=== PATIENT | male | born 1935 | race Caucasian/White ===

== ENCOUNTER 2018-03-26 10:20 | Inpatient (IN) | payer MEDICARE, SELFPAY ==
[2018-03-26 11:01] LABS: #Lymphocytes 1.1 thou/uL (1.20-3.40); #Monocytes 0.5 thou/uL (0.11-0.59); #Neutrophils 8.1 thou/uL (1.40-6.50); %Basophils 0.2 % (0.0-1.0); %Eosinophils 0.4 % (0.0-10.0); %Lymphocytes 11.5 % (21.0-51.0); %Monocytes 4.9 % (0.0-10.0); %Neutrophils 83.1 % (42.0-75.0); Hemoglobin 15.2 g/dL (14.0-18.0); Mean Corpuscular HGB CONC 33.5 g/dL (32.0-36.0); Mean Corpuscular Hemoglobin 34.6 pg (27.0-31.0); Mean Platelet Volume 8.7 fL (7.4-10.4); Platelet Count 150 thou/uL (130-400); RBC Distribution Width 11.6 % (11.5-14.5); Red Blood Cell (RBC) Count 4.39 mill/uL (4.70-6.10); White Blood Cell (WBC) Count 9.8 thou/uL (4.8-10.8)
--- NOTE | 2018-03-26 11:03 | CT ---
CT BRAIN NONCONTRAST: DATE: 03/26/2018. TIME: 10:25 a.m. HISTORY: An 82-year-old male with right facial droop and dysarthria beginning yesterday morning. Dr. Dillard discussed the findings of this level I stroke alert protocol CT with Dr. Woodward of the emergenc y department at 10:30 a.m. on 03/26/2018. COMPARISON: None available. FINDINGS: There are multifocal small, patchy moderately low-attenuation focal lesions involving the left extrem e capsule, basal ganglia, and left caudate nucleus. There is a moderate to large arachnoid cyst in the left middle cranial fossa. There is no mass effec t, midline shift, acute intraaxial or extraaxial hemorrhage, or calvarial fracture. The ventricles a re normal in size and configuration. IMPRESSION: 1. Multiple small, moderately low attenuation lesions involving the left corpus striatum, consistent with multiple small lacunar infarctions, of indeterminate age. 2. No acute intracranial hemorrhage or mass effect. 3. Arachnoid cyst in the left middle cranial fossa. 4. If there are no contraindications, MRI of the brain would be useful to distinguish acute/subacute infarctions from old ones. CODE CR JN R POS: [facility]
[2018-03-26 11:07] LABS: PTT 28.2 SEC (22.9-36.1); Prothrombin Time 12.8 SEC (12.0-14.7)
--- NOTE | 2018-03-26 11:10 | RAD ---
SINGLE VIEW OF THE CHEST: COMPARISON: None. HISTORY: Slurred speech and facial drooping. FINDINGS: A single view of the chest shows a normal-size cardiomediastinal silhouette with atherosclerotic calc ifications in the aorta. There is no evidence of consolidation, mass, or pleural effusion. IMPRESSION: No evidence of acute cardiopulmonary disease. POS: [facility]
[2018-03-26 11:25] LABS: ALT (SGPT) 16 U/L (8-55); AST (SGOT) 17 U/L (5-34); Alkaline Phosphatase 84 U/L (40-150); Anion Gap 11 mmol/L (10-20); BUN (Urea Nitrogen) 16 mg/dL (8.4-25.7); Bilirubin, Total 0.5 mg/dL (0.2-1.2); CK (CPK) 54 U/L (30-200); Calc. Creatinine Clearance 0 mL/min (70-130); Calcium 9.1 mg/dL (7.8-10.44); Carbon Dioxide 26 mmol/L (23-31); Chloride 110 mmol/L (98-107); Estimated GFR-MDRD 81; Globulin 2.6 g/dL (2.4-3.5); Glucose 111 mg/dL (83-110); Protein, Total 6.6 g/dL (5.8-8.1); Sodium 143 mmol/L (136-145)
--- NOTE | 2018-03-26 11:32 | PDOC.FPRHP ---
- History of Present Illness Chief Complaint: slurred speech History of Present Illness: Pt started noticing difficulty with speech yesterday morning. Pt reports having trouble speaking and finding words as well as some possible clumsiness with use of hands. Pt is lithuanian and has thick accent on top of his slurred speech and therefore difficult to understand. HPI and ROS are therefore limited. Pt denies any other complaints. ED Course: ASA 325 - Allergies/Adverse Reactions Allergies Allergy/AdvReac Type Severity Reaction Status Date / Time No Known Allergies Allergy Unverified 03/26/18 12:13 - History PMHx: PAD PSHx: Stents in lower abdomen vessels. FHx: Noncontributory Social: 1 ppd smoker for 50+ yrs, Drinks wine on occasion, Denies any illicit drug use Discussed code status with pt and what to do if heart stopped or needed to be intubated. Pt reports being a DNR and DNI - Review of Systems ROS unobtainable: other (due to slurred speech ROS was difficult to obtain) General: denies: fever/chills, weight/appetite/sleep changes Eyes: denies: eye pain, vision changes ENT: denies: nasal congestion, rhinorrhea Respiratory: denies: shortness of breath Cardiovascular: denies: chest pain, palpitation Gastrointestinal: denies: nausea, vomiting, diarrhea, constipation Genitourinary: denies: dysuria Skin: denies: rashes, lesions Musculoskeletal: denies: pain, tenderness, stiffness Neurological: reports: other Psychological: denies: anxiety, depression - Vital signs BP: [134/77] HR: [67] RR: [16] Tmax: [98] Pox: [99]% on [ra] Wt: [72kg] - Physical Exam Constitutional: awake, alert and oriented, well developed HEENT: normocephalic and atraumatic, PERRLA, EOMI, conjunctiva clear, grossly normal vision, grossly normal hearing, MMM Neck: supple, trachea midline Chest: no-tender to palpation Heart: RRR, normal S1/S2 Lungs: CTAB, no respiratory distress Abdomen: soft, non-tender Musculoskeletal: normal structure, normal tone Neurological: normal sensation, DTRs 2+ -Neurological: normal strength. Slurred speech per HPI. Good coordination with finger-nose test. CN2-12 intact except tongue deviation to the R. Skin: no rash/lesions, good turgor Heme/Lymphatic: no unusual bruising or bleeding, no purpura Psychiatric: normal mood and affect, good judgment and insight FMR H&P: Results - Labs Result Diagrams: 03/26/18 10:45 03/26/18 10:45 Lab results: WBC 9.8 thou/uL (4.8-10.8) 03/26/18 10:45 Hgb 15.2 g/dL (14.0-18.0) 03/26/18 10:45 Hct 45.5 % (42.0-52.0) 03/26/18 10:45 MCV 104.0 fL (78.0-98.0) H 03/26/18 10:45 Plt Count 150 thou/uL (130-400) 03/26/18 10:45 Neutrophils % 83.1 % (42.0-75.0) H 03/26/18 10:45 Sodium 143 mmol/L (136-145) 03/26/18 10:45 Potassium 4.0 mmol/L (3.5-5.1) 03/26/18 10:45 Chloride 110 mmol/L (98-107) H 03/26/18 10:45 Carbon Dioxide 26 mmol/L (23-31) 03/26/18 10:45 BUN 16 mg/dL (8.4-25.7) 03/26/18 10:45 Creatinine 0.90 mg/dL (0.7-1.3) 03/26/18 10:45 Glucose 111 mg/dL (83-110) H 03/26/18 10:45 Calcium 9.1 mg/dL (7.8-10.44) 03/26/18 10:45 Total Bilirubin 0.5 mg/dL (0.2-1.2) 03/26/18 10:45 AST 17 U/L (5-34) 03/26/18 10:45 ALT 16 U/L (8-55) 03/26/18 10:45 Alkaline Phosphatase 84 U/L (40-150) 03/26/18 10:45 Creatine Kinase 54 U/L (30-200) 03/26/18 10:45 Serum Total Protein 6.6 g/dL (5.8-8.1) 12/16/18 10:45 Albumin 4.0 g/dL (3.4-4.8) 03/26/18 10:45 FMR H&P: A/P - Problem List (1) Ischemic stroke Current Visit: Yes Status: Acute Code(s): I63.9 - CEREBRAL INFARCTION, UNSPECIFIED - Plan 82yo M presenting with 36hr hx of slurred speech New onset of acute ischemic stroke A- Pt is symptomatic for about [address] shows multiple lacunar small infarcts in L corpus striatum and an arrachnoid cyst. Pt is not candidate for tPa. P-Admit to stroke -continue ASA daily -MRI, Echo, Carotid doppler studies pending -FLP, A1C, TSH -neuro consult -PT/OT/Speech consulted- await recs -Case management consulted for possible rehab placement. Elevated BP A- Pt had SBPs ranging 130-160 in ED. No Hx of HTN. Permissive htn is allowed for approximately 12-16 more hrs P- will monitor vitals Premature Ventricular Contractions A- EKG at presentation showed NSR with PVCs. Pt is asymptomatic and trop is negative. P- will monitor rhythm as well as monitor pts symptoms IVF: LR at 100ml/hr as pt is NPO untill speech therapy eval Code: DNR/DNI Dispo: inpatient, at least 2 midnights FMR H&P: Upper Level - Pertinent history I was present in room for Dr. Coelho History intake and agree with his part above. Pertinents listed below 82 pt comes in with chief complaint of slurred speech since Tuesday. Pt hard to understand and [place] language is lithuanian. Pt having hard time with word finding and forming sentences. Pt seems to understand questions and answers yes and no. Pt reports not being to doctor for a long time. Pt denies any major medical problems. Pt denies any headache, vision changes. Denies any numbness or tingling. Denies any other focal deficits - Pertinent findings CN2-12 other than 7 grossly intact. No facial droop noted. Tongue deviated towards left when asked to stick out. No other focal neuro defecit noted - Plan Date/Time: 03/26/18 1132 I, Melecio Steve, have evaluated this patient and agree with findings/plan as outlined by digital media intern resident. Pertinent changes/additions are listed here. New onset of acute ischemic stroke A- Pt is symptomatic for about [address] shows multiple lacunar small infarcts in L corpus striatum and an arrachnoid cyst. Pt is not candidate for tPa. P-Admit to stroke -continue ASA daily -MRI, Echo, Carotid doppler studies pending -FLP, A1C, TSH -neuro consult -PT/OT/Speech consulted- await recs -Case management consulted for possible rehab placement. Elevated BP A- Pt had SBPs ranging 130-160 in ED. No Hx of HTN. Permissive htn is allowed for approximately 12-16 more hrs P- will monitor vitals -May want to start on BP medication if continues to be elevated. Premature Ventricular Contractions A- EKG at presentation showed NSR with PVCs. Pt is asymptomatic and trop is negative. P- will monitor rhythm as well as monitor pts symptoms
[2018-03-26] MEDS ORDERED: Aspirin 325 MG TAB ONE (11:48)
[2018-03-26] MEDS ORDERED: Calcium Carbonate 500 MG ChewTAB PO PRN (12:55)
[2018-03-26] MEDS ORDERED: Acetaminophen 325 MG TAB PO PRN (12:55)
[2018-03-26] MEDS ORDERED: Acetaminophen 650 MG Suppository PR PRN (12:55)
[2018-03-26] MEDS ORDERED: Ondansetron ODT 4 MG TAB PO PRN (12:55)
[2018-03-26] MEDS ORDERED: Enoxaparin Sodium 40 MG/0.4 ML SYRINGE SC SCH (12:55)
[2018-03-26] MEDS ORDERED: Ondansetron PF 4 MG/2 ML Vial IVP PRN (12:55)
[2018-03-26 13:19] LABS: Hemoglobin A1c 5.4 % (4.0-6.0)
--- NOTE | 2018-03-26 14:42 | MRI ---
MRI BRAIN NONCONTRAST: DATE: 03/26/2018. TIME: 2:08 p.m. HISTORY: An 82-year-old male with symptoms of acute stroke: right facial droop and dysarthria. Equivocal find ings on CT. COMPARISON: CT of 03/26/2018, 10:25 a.m. No prior brain MRIs. FINDINGS: The subtle, faint multiple tiny foci of moderately low attenuation involving the left basal ganglia, a small portion of the left caudate nucleus, and adjacent portion of left periventricular white matte r, is demonstrated on this MRI to be a single confluent 1.6 x 1.6 cm lesion that has restricted diffu tato indicating that it is an acute or subacute infarction. It is associated with mild T2 hyperinten sity. There are no actual lesions in the left extreme capsule. Again noted is the 3.5 x 3.5 x 3 cm arachnoid cyst in the left middle cranial fossa. Otherwise, ther e is no mass effect, midline shift, obstructive hydrocephalus, or extraaxial fluid collection. No re cent or remote intraaxial hemorrhage. There are mild chronic ischemic white matter changes in the ce ntrum semiovale and henson radiata. There is a right mastoid effusion. IMPRESSION: 1. Acute infarction of the left corpus striatum (involving lenticulostriate branch territory of the left middle cerebral artery). 2. Right mastoid effusion. 3. Arachnoid cyst in left middle cranial fossa. CARSON Britton POS: [facility]
--- NOTE | 2018-03-26 15:26 | ULT ---
ULTRASOUND DOPPLER DUPLEX CAROTID: HISTORY: An 82-year-old male with acute stroke: infarction of left corpus striatum. TECHNIQUE: Sweeney scale, color flow, and spectral analysis, of major arteries of neck. FINDINGS: Calcified atherosclerotic plaque in the bilateral proximal internal carotid arteries, including carot id bulbs. Scattered small calcified plaque at origin of right external carotid artery and at distal left common carotid artery. The highest peak systolic velocities in the internal carotid arteries are 230 cm/s on the right, and 120/s on the left. The end-diastolic velocity at the right internal carotid artery is 90 cm/s. ICA/CCA ratios are 2.2 on the right and 1.4 on the left. Vertebral artery flow is antegrade bilaterally. IMPRESSION: 1. Atherosclerosis of bilateral proximal internal carotid arteries. 2. Moderate to severe stenosis in the right internal carotid artery. POS: [facility]
[2018-03-26] MEDS ORDERED: Atorvastatin Calcium 40 MG TAB PO SCH (21:00)
[2018-03-26] MEDS: Lactated Ringer's 1,000 ML IV SCH (23:21)
[2018-03-27 00:13] VITALS: BMI 23.3
[2018-03-27] MEDS ORDERED: Enoxaparin Sodium 40 MG/0.4 ML SYRINGE SC SCH (01:30)
[2018-03-27] MEDS: Enoxaparin Sodium 40 MG/0.4 ML SYRINGE SC SCH ×2 (01:47→20:45)
--- NOTE | 2018-03-27 06:02 | PDOC.FM ---
- Subjective Subjective: Mr. Bocanegra is feeling well this AM. Reports decent rest and has no new problems or complaints at this time. He feels his symptoms are stable. No fever/chills, no cp no sob - Objective MAR Reviewed: Yes Vital Signs & Weight: Vital Signs (12 hours) Temp Pulse Resp BP Pulse Ox 03/27/18 04:00 97.4 F L 68 19 121/59 L 95 03/27/18 00:00 98.0 F 60 18 139/77 93 L 03/26/18 20:00 96 03/26/18 19:35 98.1 F 71 16 128/58 L 97 Weight Weight 69.598 kg Result Diagrams: 03/27/18 05:54 03/27/18 05:54 Phys Exam - Physical Examination Constitutional: NAD HEENT: moist MMs, sclera anicteric Neck: supple R carotid bruit Respiratory: no wheezing, no rales Cardiovascular: RRR, no significant murmur Gastrointestinal: soft, non-tender Musculoskeletal: no edema, pulses present Neurological: normal sensation, moves all 4 limbs slurred speech Psychiatric: normal affect, A&O x 3 Skin: no rash, normal turgor Dx/Plan (1) Ischemic stroke Code(s): I63.9 - CEREBRAL INFARCTION, UNSPECIFIED Status: Acute - Plan Plan: 82yo M presenting with 36hr hx of slurred speech New onset of acute ischemic stroke A- Pt is symptomatic for about [address] shows multiple lacunar small infarcts in L corpus striatum and an arrachnoid cyst. MRI confirms it is acute stroke. R carotid doppler shows moderate to severe stenosis of R ICA. A1C and TSH wnl. P-continue ASA daily -Echo pending -Will get CTA head and neck -FLP wnl -neuro consult -PT/OT/Speech consulted- await recs -Case management consulted for possible rehab placement. Elevated BP A- Pt had SBPs ranging 130-160 in ED. No Hx of HTN. P- will monitor vitals Premature Ventricular Contractions A- EKG at presentation showed NSR with PVCs. Pt is asymptomatic and trop is negative. P- will monitor rhythm as well as monitor pts symptoms IVF: LR at 100ml/hr as pt is NPO untill speech therapy eval Code: DNR/DNI Dispo: inpatient, at least 2 midnights Addendum - Attending - Attending Attestation Date/Time: 03/27/18 0405 I personally evaluated the patient and discussed the management with Dr. Coelho and Dr. Clifton I agree with the History, Examination, Assessment and Plan documented above with any addition or exceptions noted below. 82 yo male with hx of PVD admitted for CVA. HD#1 Patient still with slurred speech. Has been evaluated by speech and okay to continue modified diet. No other neuro deficits noted today. Reports he feels well. VS reviewed. Labs reviewed. Imaging reviewed. 1. Ischemic CVA: s/p CT/MRI. Noted to have Left corpus striatum lacunar infarcts. Continues to have slurred speech. Requires modified diet. Stroke team following. Will need assistance at home along with home PT/OT/Speech. Needs PCP. 2. Right Asymptomatic Carotid stenosis: Ultrasound right ICA/CCA ratio > 2. CT surg consulted. Has been on Plavix. Will evaluate further with CTA. 3. New onset rEFHF: Cards consulted. Risk for CAD. Started on low dose beta eloise and ARB. Continue tele monitoring. Possibly will need event monitor placed at d/c. 4. hx of PVD s/p right iliac stent placement: Continue plavix 5. HLD: Restarted low dose statin. Reports nausea and dizziness with previous statin use. Unsure which statin used. 6. Arachnoid cyst: Located in Left Middle Cranial Fossa. No complications from cyst. Will need follow up outpatient to monitor growth or mass effect. Currently 3.5 x 3.5 x 3.0 cm. Dispo: CT surg and Cards consulted. Follow up recs. [place]
[2018-03-27 06:36] LABS: #Basophils 0.1 thou/uL (0.0-0.2); #Lymphocytes 1.5 thou/uL (1.20-3.40); #Monocytes 0.6 thou/uL (0.11-0.59); #Neutrophils 3.9 thou/uL (1.40-6.50); %Basophils 0.9 % (0.0-1.0); %Eosinophils 0.5 % (0.0-10.0); %Lymphocytes 24.3 % (21.0-51.0); %Monocytes 9.5 % (0.0-10.0); %Neutrophils 64.8 % (42.0-75.0); Hemoglobin 13.5 g/dL (14.0-18.0); Mean Corpuscular HGB CONC 34.3 g/dL (32.0-36.0); Mean Corpuscular Hemoglobin 35.2 pg (27.0-31.0); Mean Platelet Volume 8.8 fL (7.4-10.4); Platelet Count 127 thou/uL (130-400); RBC Distribution Width 11.5 % (11.5-14.5); Red Blood Cell (RBC) Count 3.85 mill/uL (4.70-6.10)
[2018-03-27 06:51] LABS: Anion Gap 12 mmol/L (10-20); BUN (Urea Nitrogen) 15 mg/dL (8.4-25.7); Calc. Creatinine Clearance 67 mL/min (70-130); Calcium 8.7 mg/dL (7.8-10.44); Carbon Dioxide 26 mmol/L (23-31); Cardiac Risk 4.6 (Less than 4.5); Chloride 110 mmol/L (98-107); Cholesterol 202 mg/dl (< 200 Desired); Estimated GFR-MDRD 84; Glucose 85 mg/dL (83-110); HDL Cholesterol 44 mg/dL (>60 Neg Risk); LDL Cholesterol, Calculated 137 mg/dL; Sodium 144 mmol/L (136-145); Triglycerides 103 mg/dL (Less than 150)
--- NOTE | 2018-03-27 07:12 | HP ---
ADDENDUM: Please see the history and physical done by Dr. Chuy Coelho, for which I agree. HISTORY OF PRESENT ILLNESS: This is an 82-year-old patient seen, evaluated, and discussed with the residents at the bedside. Comes in with slurring speech that apparently started yesterday morning. It sounds like he was confused driving as well. He has an extremely thick Belgian accent and then slurring speech, so this is a very difficult communication issue, but he was talking to a friend intermittently in Belgian and broken Malay and it sounds like he was somewhat confused yesterday driving back and forth, but did not describe any kind of numbness or tingling in any of the four extremities. Does not take home aspirin, but it sounds like does have history of peripheral arterial disease in the past. No improvement of symptoms, so he came into the emergency room greater than 24 hours later. Past medical history, past surgical history, review of systems, family history, all per the resident's history and physical, for which I concur. PHYSICAL EXAMINATION: VITAL SIGNS: On exam, afebrile. Vital signs are stable. GENERAL: There is quite bit of ectopy on the monitor with a lot of premature beats and definitely slurring speech. Because of that, it is really difficult to really ascertain his orientation. HEENT: Otherwise, ENT is within normal limits, may be slight right facial droop compared to left. NECK: I do not hear any bruits in the carotids. CHEST: Clear. CARDIOVASCULAR: Regular rate and rhythm. NEUROLOGIC: Normal other than the slurring speech. LABORATORY DATA: Labs are pretty noncontributory. MRI did show left-sided stroke consistent with his symptoms. ASSESSMENT: Stroke. PLAN: Plan is to admit him, echo, put him on telemetry, make sure he takes aspirin, will get carotids, get Neurology involved, and start working on therapy. Pretty much standard stroke protocol. Going to watch the tele closely to make sure he is not flipping in and out of any kind of arrhythmias. Otherwise, we will see how his symptoms improve over the next few days and hopefully, they will. He states he has no family around, and also said that he is do not resuscitate. He says he has friends coming from [place] coming up. Job ID: [id number]
[2018-03-27] MEDS: Lactated Ringer's 1,000 ML IV SCH ×2 (08:40→09:37)
[2018-03-27] MEDS: Aspirin 81 mg Enteric Coated Tablet PO SCH (09:37)
--- NOTE | 2018-03-27 14:33 | PDOC.EVN ---
Event Note - Event Note Event Note: Pt clarified at 1400 to me that his reaction to statins several years ago was just some mild dizziness. no respiratory symptoms, no syncope. Pt is agreeable to trying atorvastatin at lower dosage to see if he can tolerate the med for its benefits in risk reduction of further stroke.
[2018-03-27] MEDS ORDERED: Atorvastatin Calcium 20 MG TAB PO SCH (15:00)
--- NOTE | 2018-03-27 15:05 | CON ---
DATE OF CONSULTATION: HISTORY OF PRESENT ILLNESS: This is an 82-year-old gentleman, who lives alone in [place]. 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 He presented with some speech difficulty with no motor defects. He was found to have an infarct in the left corpus striatum by MRI. A carotid ultrasound with velocities on the right of 230 cm/second and a CTA suggestive of about 60% to 70% stenosis in the internal carotid on the right about 2 cm above the carotid bifurcation. The patient's cardiovascular risk factors include smoking and dyslipidemia, although the patient states he is statin intolerant. He denies hypertension. He was taking Plavix on a daily basis at home, but no aspirin, and the Plavix was related to some sort of arterial stent on the right leg or in the right iliac region done, I think, in [place]. SOCIAL HISTORY: Lives alone. MEDICATIONS PRIOR TO ADMISSION: Clopidogrel. ALLERGIES: STATIN INTOLERANCE. PHYSICAL EXAMINATION: GENERAL: Alert, cooperative gentleman. VITAL SIGNS: Height 5 feet and 8 inches and weight 153. NECK: No carotid bruits. LUNGS: Clear to auscultation. CARDIAC: Regular rate and rhythm. No gallops or murmurs. ABDOMEN: Soft and nontender. EXTREMITIES: Palpable femoral and pedal pulses bilaterally with no peripheral edema. NEUROLOGIC: Slight lip droop as well as slurred speech. Words are appropriate, just difficult to understand and these in conjunction with a slight accent makes conversation somewhat difficult. ASSESSMENT AND PLAN: At this time, we would send the patient home on 81 of aspirin and Plavix and consider a trial of low-dose statin therapy. I will follow up with him in 3 to 4 months and repeat his carotid ultrasound. At this time, his right carotid stenosis, although may be significant, is unrelated to his current stroke and no indication at this time to pursue intervention for this. I have gone over this with the patient and we will plan on seeing him in the office in 3 months. Job ID: [id number]
--- NOTE | 2018-03-27 15:36 | CT ---
CT ANGIOGRAM HEAD WITH CONTRAST CT ANGIOGRAM NECK WITH CONTRAST: Date: 03/27/18 HISTORY: 82-year-old male with acute cerebral infarction and high grade right internal carotid artery stenosis . TECHNIQUE: Prior to IV injection, standard noncontrast brain CT performed. Following IV contrast injection of 10 0 mL Isovue 370, arterial bolus chasing technique scan performed from aortopulmonic window to vertex of head. Coronal and sagittal 3D MIP reconstructions. NASCET criteria used. FINDINGS: Compared to the noncontrast brain CT of 03/26/18, the region of low attenuation (representing cytotox ic edema) involving the left corpus striatum has become more confluent. There is no evidence of hemor rhage. Again noted is the arachnoid cyst in the left middle cranial fossa. No mass effect. The lenticulostriate branches of the middle cerebral arteries are too small to visualize individually on CT angiogram. There is no evidence of high grade stenosis or occlusion involving the carotid term ini; M1 segments and their proximal branches, of the middle cerebral arteries; A1 and A2 segments of the bilateral internal carotid arteries; basilar artery; bilateral posterior cerebral arteries; bilat eral superior cerebellar arteries; and bilateral PICA's. Small caliber bilateral AICA's are also visu alized. There is atherosclerotic calcification of bilateral carotid siphons. It is difficult to deter mine the degree of stenosis at the right cavernous carotid because of the heavy calcification there. There is no high grade stenosis in the contralateral left carotid siphon. There is origin of th e left posterior cerebral artery. No aneurysm is identified. There is calcified and noncalcified plaque in the bilateral proximal internal carotid arteries, begin hardy at their origins, and reaching up to approximately 2 or 2.5 cm distal to the origins. At a dista nce of approximately 1.5 cm distal to the origin of the right internal carotid artery, there is a petar rt segment focus of greatest stenosis, estimated to be approximately 75%. In the contralateral left p roximal internal carotid artery, the greatest degree of stenosis is estimated to be approximately 30% . The distal cervical internal carotid arteries are of normal caliber. Bilateral common carotid arteries, brachiocephalic artery, bilateral subclavian arteries, and bilater al vertebral arteries demonstrate no high grade stenosis. There is a very thin (a few millimeters in caliber) vertically oriented string-like material within t he lumen of the trachea. IMPRESSION: 1. Evolution of acute infarction of the left corpus striatum. 2. Severe, approximately 75% stenosis in the right internal carotid artery, approximately 1.5 cm dis tracie to its origin. 3. Atherosclerotic disease in the bilateral proximal internal carotid arteries. 4. Thin, vertical, string-like material within the lumen of the trachea, presumably representing a l german piece of secretion. POS: [facility]
[2018-03-27] MEDS ORDERED: Atorvastatin Calcium 10 MG TAB PO SCH (21:00)
[2018-03-28] MEDS: Aspirin 81 mg Enteric Coated Tablet PO SCH (09:03)
[2018-03-28] MEDS ORDERED: Atorvastatin Calcium 10 MG TAB PO SCH (09:33)
--- NOTE | 2018-03-28 11:45 | PDOC.FM ---
- Subjective Subjective: Pt reports feelign well this AM. He had PT and speech therapy yesterday and feels ready to go home. Reports that he had no side effects from atorvastatin after taking 10mg and desires to try 20mg dose. no fever/chills, no cp no sob - Objective MAR Reviewed: Yes Vital Signs & Weight: Vital Signs (12 hours) Temp Pulse Resp BP Pulse Ox 03/28/18 08:58 97 03/28/18 07:51 98.0 F 55 L 14 145/78 H 97 03/28/18 04:00 97.8 F 75 19 140/88 96 03/28/18 00:00 98.5 F 52 L 19 126/64 97 Weight Weight 69.598 kg I&O: 03/27/18 03/28/18 03/29/18 06:59 06:59 06:59 Intake Total 600 Output Total 200 Balance 400 Result Diagrams: 03/27/18 05:54 03/27/18 05:54 Phys Exam - Physical Examination Constitutional: NAD HEENT: moist MMs, sclera anicteric Neck: no nodes, no JVD Respiratory: no wheezing, clear to auscultation bilateral Cardiovascular: RRR, no significant murmur Gastrointestinal: soft, non-tender Musculoskeletal: no edema, pulses present Neurological: normal sensation, moves all 4 limbs Lymphatic: no nodes Psychiatric: normal affect, A&O x 3 Skin: no rash, normal turgor Dx/Plan (1) Ischemic stroke Code(s): I63.9 - CEREBRAL INFARCTION, UNSPECIFIED Status: Acute - Plan Plan: 82yo M presenting with 36hr hx of slurred speech New onset of acute ischemic stroke A- CT shows multiple lacunar small infarcts in L corpus striatum and an arrachnoid cyst. MRI confirms it is acute stroke. CTA shows R ICA stenosis of 60 -70%. A1C and TSH wnl. P-continue ASA daily -neuro consult, f/u on recs -will add home clopidogrel per CV surg recs - continue pt/ot/speech therapy -Case management consulted for possible rehab placement. R ICA stenosis A- CTA shows R ICA stenosis of 60-70%. CV surge recommends clopidogrel and aspirin with outpt f/u P- will follow CV surg recs as above HFrEF A- Echo shows EF of 35-40%. No hx of HF. Pt asymptomatic. P- Will start losartan and coreg -consult Cards and await recs Elevated BP A- Pt had SBPs ranging 130-160 in ED. No Hx of HTN. hypertensive today P- starting losartan and coreg per plan above. Premature Ventricular Contractions A- EKG at presentation showed NSR with PVCs. Pt is asymptomatic and trop is negative. P- will monitor rhythm as well as monitor pts symptoms Code: DNR/DNI Addendum - Attending - Attending Attestation Date/Time: 03/28/18 9032 I personally evaluated the patient and discussed the management with Dr. Coelho and Dr. Clifton I agree with the History, Examination, Assessment and Plan documented above with any addition or exceptions noted below. 82 yo male with hx of PVD admitted for CVA. HD#2 Patient still with slurred speech. Reports he feels well. No side effects from medication. VS reviewed. Labs reviewed. Imaging reviewed. 1. Ischemic CVA: s/p CT/MRI. Noted to have Left corpus striatum lacunar infarcts. Continues to have slurred speech. Requires modified diet. Stroke team following. Will need assistance at home along with home PT/OT/Speech. Does not wish to pursue inpatient rehab. Needs PCP. 2. Right Asymptomatic Carotid stenosis: Ultrasound right ICA/CCA ratio > 2. CT surg consulted. CTA with 75% stenosis to right carotid. Per CT surg will continue medical management at this time with DAPT. Repeat scans in 3 months. 3. New onset rEFHF: Cards consulted. Risk for CAD. Started on low dose beta eloise and ARB. Continue tele monitoring. Possibly will need event monitor placed at d/c. Noted to have dysrrhymias on tele per cards. Will continue to monitor overnight on tele. Monitor for bradycardia. 4. hx of PVD s/p right iliac stent placement: Continue plavix 5. HLD: Restarted low dose statin. No side effects noted. 6. Arachnoid cyst: Located in Left Middle Cranial Fossa. No complications from cyst. Will need follow up outpatient to monitor growth or mass effect. Currently 3.5 x 3.5 x 3.0 cm. Dispo: Cards consulted. Will follow up on recs. CM working on home health and therapy for d/c planning. Patient to find PCP. Must have appt prior to d/c. [place]
--- NOTE | 2018-03-28 14:11 | EKG ---
Test Reason : STROKE ALERT Blood Pressure : / mmHG Vent. Rate : 075 BPM Atrial Rate : 075 BPM P-R Int : 150 ms QRS Dur : 140 ms QT Int : 452 ms P-R-T Axes : 075 -62 039 degrees QTc Int : 504 ms Sinus rhythm with frequent Premature ventricular complexes Right bundle branch block Left anterior fascicular block Bifascicular block Abnormal ECG Confirmed by CECILLE MEDINA DO ([id number]), society editor NETO ESPARZA ([id number]) on 03/28/2018 2:11:45 PM Referred By: ADAM Confirmed By:CECILLE MEDINA DO
[2018-03-28] MEDS ORDERED: Metoprolol Tartrate 5 MG/5 ML VIAL IVP PRN (16:23)
[2018-03-28] MEDS: Labetalol HCl 100 MG/20 ML VIAL ONE ×2 (16:48→17:02)
[2018-03-28] MEDS ORDERED: Labetalol HCl 100 MG/20 ML VIAL SLOW IVP PRN (16:57)
[2018-03-28] MEDS ORDERED: Carvedilol 3.125 MG TAB PO SCH (17:00)
[2018-03-28] MEDS: Carvedilol 6.25 MG TAB PO SCH (17:13)
[2018-03-28 17:39] LABS: Troponin I Less than 0.010 ng/mL (< 0.028)
[2018-03-28] MEDS: Atorvastatin Calcium 20 MG TAB PO SCH (20:07)
[2018-03-28] MEDS: Enoxaparin Sodium 40 MG/0.4 ML SYRINGE SC SCH (20:07)
[2018-03-28 23:07] LABS: Troponin I Less than 0.010 ng/mL (< 0.028)
--- NOTE | 2018-03-29 03:02 | CON ---
DATE OF CONSULTATION: TYPE OF CONSULTATION: Cardiology Consult REASON FOR CARDIOLOGY CONSULT: New onset of congestive heart failure with reduced ejection fraction. HISTORY OF PRESENT ILLNESS: Mr. Bocanegra is an 82-year-old male with a significant history of peripheral artery disease with stent placement to the bilateral iliac arteries in [place] in 2015. The patient is in the hospital due to the stroke with left facial drooping and right-sided weakness. At this moment, the patient feels more stronger, and the patient's strength about his arms is almost equal. Cardiology consult was ordered due to the patient's echocardiogram on March 27, 2018, shows EF of 35% to 40%. The patient denied any cardiac workup before except peripheral artery disease workup in the lower extremities in [place] in 2016. Prior to this stroke event, the patient denied shortness of breath, abdominal pain, bloating, edema, or any other cardiac complaints. At this moment, the patient denies any cardiac complaints. The patient is doing well with room air. The patient already received the congestive heart failure education, and the patient voiced understanding of all his information. The patient is from [facility], and the patient has speech difficulty sometimes; however, the patient is very pleasant and very helpful to our assessment. The patient has carotid Doppler study done, which shows [id number] stenosis in the right internal carotid artery, and Dr. Richard already consulted this patient for right coronary artery stenosis. At this moment, Dr. Richard would like to keep the patient on Plavix and aspirin and follow up within 3 to 4 months with a repeat carotid ultrasound. PAST MEDICAL HISTORY: Peripheral artery disease. PAST SURGICAL HISTORY: History of bilateral iliac artery stent in [place] in 2015, and the patient had left femoral fracture in 2001, with a brace. FAMILY HISTORY: The patient's mother had heart problem, and the patient's paternal aunt in the paternal side has a history of CVA. SOCIAL HISTORY: The patient lives alone, but he has good support from his neighbors. He smokes 1 pack a day since 27 years old. He drinks 2 glasses of wine every night. He denies illicit drug abuse. He drinks 2 cups of coffee. He does not do exercise. He would like to be DNR and DNI. ALLERGIES: HE HAS NO KNOWN DRUG ALLERGIES. REVIEW OF SYSTEMS: Twelve-point review of systems was negative unless otherwise mentioned in the HPI. HOME MEDICATIONS: 1. Plavix 75 mg once a day. 2. Prilosec 20 mg once a day [id number]. PHYSICAL EXAMINATION: VITAL SIGNS: Blood pressure 148/64, temperature 97.7, pulse is 67, sinus rhythm with PVCs, respiratory rate 18, and O2 saturation 98% on room air. GENERAL: The patient is alert and oriented x4, not in acute distress. HEENT: Head; normocephalic and atraumatic. Eyes; extraocular muscle movements are intact. He uses reading glasses. ENT and mouth; oral and nasal mucosa are moist without lesions. NECK: No JVD. Neck is supple. Normal range of motion. RESPIRATORY: Clear to auscultation bilaterally. No wheezing, rales, or rhonchi noted. CARDIOVASCULAR: Regular rate and rhythm. No significant murmurs, heaves, or thrill noted. Normal S1 and S2. There is no S3 or S4. 2+ pulses in the bilateral upper and lower extremities. No edema. ABDOMEN: Nontender. No masses palpated. Bowel sounds are present. SKIN: Warm and dry. No hematoma, lesion, or rash noted. MUSCULOSKELETAL: The patient is able to move all extremities. The patient denied claudication. PSYCHIATRIC: The patient's mood is appropriate. NEUROLOGIC: The patient is alert and oriented x4. Nonfocal. LABORATORY DATA: WBC 6.0, hemoglobin 13.5, hematocrit 39.4, platelet 127. Sodium 144, potassium 4.0, BUN is 15, creatinine 0.87, glucose 85. Hemoglobin A1c 5.4. Cholesterol 202, triglyceride 103, HDL 44, LDL 137. TSH 1.0517. The patient's echocardiogram shows ejection fraction of 35% to 40%, grade 1 diastolic dysfunction, mild mitral valve regurgitation, and mild tricuspid regurgitation. The patient's MRI shows acute infarction of the left and a right mastoid effusion and arachnoid cyst in the left middle cranial fossa. The patient's 12-lead EKG shows sinus rhythm with occasional PVC, right bundle-branch block, and left anterior fascicular block. ASSESSMENT AND PLAN: 1. New onset of systolic congestive heart failure. The patient's ejection fraction on echocardiogram shows 35% to 40%. At this moment, the patient is asymptomatic. The patient is going to be prescribed Coreg 3.125 mg twice a day and losartan 25 mg once a day. The patient not on diuretics at this moment; however, the patient is doing well without any diuretic during this hospitalization. We would like to continue to monitor. 2. Ischemic stroke. The patient's condition is stable at this moment, which is managed by primary care doctor. 3. Peripheral artery disease with history of bilateral iliac artery stent. The patient's condition is stable at this moment, and the patient will be on aspirin 81 mg once a day and Plavix 75 mg once a day. 4. Stenosis to the right carotid artery. Dr. Richard already consulted this patient, and the patient is going to follow up with Dr. Richard within 3 to 4 months with carotid ultrasound. 5. Premature ventricular contractions. At this moment, the patient is having premature ventricular contraction every 4 beats. The patient is asymptomatic at this moment. The patient is on the Coreg (carvedilol) 3.125 mg twice a day. Once the patient's vital signs are stable, we would like to increase the beta-eloise dosage. Thank you very much for allowing the Cardiology Service to participate in the care of this patient. We would like to follow and make recommendations as appropriate. The patient might be transferred to rehab later today or tomorrow. If so, we would like to follow up with the patient within 2 weeks after the patient was discharged from rehab. Job ID: [id number]
--- NOTE | 2018-03-29 04:15 | CON ---
DATE OF CONSULTATION: 03/28/2018 Please refer the notes dictated by my nurse practitioner, Silvina Craft. INDICATION FOR CONSULTATION: An 82-year-old gentleman, who developed some rapid heart rates which appeared to be SVT. HISTORY OF PRESENT ILLNESS: This very unfortunate 82-year-old gentleman was admitted 2 days ago after suffering a CVA. He has been confused and was brought in by family members or friends. He was found to have suffered a CVA. He also was noted to have right carotid artery stenosis and also had some evidence of a right bundle branch block with left anterior fascicular block and occasional PVCs. Earlier today, he developed SVT with a rapid heart rate. He appeared to be apparently asymptomatic. It was difficult to determine whether or not the patient is asymptomatic since he does not communicate very well. He has slurred speech at times and it is very difficult to understand what the patient is saying. 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 To me, he denied any previous cardiac history. However, he does have a history of peripheral vascular disease and also has bilateral carotid bruits. He has had a significant stenosis noted in the right carotid artery and this is being seen already by Dr. Richard, who will opt to evaluate the patient in the future as this was not felt to be the involved vessel, which caused his CVA at this time. He previously had been on, I believe, some anti-platelet medications, but is not taking aspirin. Otherwise, he is not able to give me any significant history of any previous cardiac history that he is aware of. PAST MEDICAL HISTORY: Please refer to the notes dictated by the nurse practitioner. SOCIAL HISTORY: Please refer to the notes dictated by the nurse practitioner. FAMILY HISTORY: Please refer to the notes dictated by the nurse practitioner. REVIEW OF SYSTEMS: Please refer to the notes dictated by the nurse practitioner. MEDICATIONS: Please refer to the notes dictated by the nurse practitioner. ALLERGIES: PLEASE REFER TO THE NOTES DICTATED BY THE NURSE PRACTITIONER. PHYSICAL EXAMINATION: GENERAL: Reveals an elderly gentleman, very difficult to obtain history. He is awake at the time. VITAL SIGNS: Show a blood pressure of 121/74; heart rates in the 50s, which shows sinus rhythm with PVCs. He is afebrile. Respiratory rate is 16, O2 saturations are 98%. Earlier today, the blood pressure was 155/95. HEENT: Shows the head to be normocephalic and atraumatic. He had bilateral carotid bruits, right is greater than the left. CHEST: Clear to auscultation. CARDIOVASCULAR: Reveals a regular rate and rhythm. He has normal S1. He does have a split second heart sound, but otherwise unremarkable for any significant murmurs or bruits. There were no heaves. ABDOMEN: Soft, flat, and nontender. Positive bowel sounds are present. EXTREMITIES: Show no clubbing or cyanosis. Pedal pulses are somewhat decreased, but are present. Femoral pulses are present. NEUROLOGIC: The patient is slow to respond. I cannot understand most the time what he is saying, but it is difficult to obtain a clear history from this gentleman. IMPRESSION AND PLAN: At this time, I would continue to monitor the patient very carefully. With the episodes of supraventricular tachycardia, it is unlikely that this is the etiology of the cerebrovascular accident, but could cause further problems with possibly congestive heart failure or syncope or dizziness in the future should he have rapid heart rates that would last for any length of time. He is on a beta eloise and we will see whether or not he maybe able to tolerate this medication in the form of Coreg. If he becomes too bradycardic, he may not need this and if patient is deemed to have a sick sinus syndrome, he eventually may need to undergo a pacemaker insertion. I do believe, however, he is a DNR status and this will need to be discussed with the patient whether or not he is inclined to proceed with pacemaker if so indicated. Otherwise, I believe, in the future, he could undergo stress testing, but at this time, with his recent cerebrovascular accident, I would not anticipate that. Decreased left ventricular systolic function. This maybe a manifestation of his recent cerebrovascular accident and the ejection fraction may improve certainly with medical management. He does have some indication of diastolic dysfunction, however, also but we will see whether not he is able to tolerate the beta blockers. Also, he has a normal renal function and would suggest that he be on TAMIKO inhibitor if at all possible and he is on losartan at this time and I would agree with that medication at this time. We will continue to monitor the patient with you. Should he have further episodes of supraventricular tachycardia, we may need to discuss this with the service architect for possible ablation, but overall at this time, from a cardiac standpoint, he appears to be relatively stable. I suggest we repeat the echocardiogram in 2 to 3 months to see whether or not the left ventricular systolic function has improved. Job ID: [id number]
--- NOTE | 2018-03-29 06:16 | PDOC.FM ---
- Subjective Subjective: Pt reports feeling well. He did not seem aware that he had a bout of SVT yesterday but this was confirmed on telemetry. Pt is asymptomatic with no cp or palpitations. Reports no changes in slurred speech. No complaints no fever/chills, no syncope, no new neuro deficits - Objective MAR Reviewed: Yes Vital Signs & Weight: Vital Signs (12 hours) Temp Pulse Resp BP Pulse Ox 03/29/18 03:25 97.5 F L 62 18 144/84 H 95 03/29/18 00:11 97.9 F 57 L 16 137/78 97 03/28/18 20:38 98.4 F 56 L 16 121/74 98 Weight Weight 69.598 kg I&O: 03/27/18 03/28/18 03/29/18 06:59 06:59 06:59 Intake Total 600 275 Output Total 200 Balance 400 275 Result Diagrams: 03/27/18 05:54 03/27/18 05:54 Phys Exam - Physical Examination Constitutional: NAD HEENT: moist MMs, sclera anicteric Neck: no nodes, no JVD Respiratory: no wheezing, clear to auscultation bilateral Cardiovascular: RRR, no significant murmur Gastrointestinal: soft, non-tender Musculoskeletal: no edema, pulses present Neurological: normal sensation, moves all 4 limbs Lymphatic: no nodes Psychiatric: normal affect, A&O x 3 Skin: no rash, normal turgor Dx/Plan (1) Ischemic stroke Code(s): I63.9 - CEREBRAL INFARCTION, UNSPECIFIED Status: Acute (2) HFrEF (heart failure with reduced ejection fraction) Code(s): I50.20 - UNSPECIFIED SYSTOLIC (CONGESTIVE) HEART FAILURE Status: Acute (3) Carotid stenosis Code(s): I65.29 - OCCLUSION AND STENOSIS OF UNSPECIFIED CAROTID ARTERY Status : Acute (4) HTN (hypertension) Code(s): I10 - ESSENTIAL (PRIMARY) HYPERTENSION Status: Acute - Plan Plan: 82yo M presenting with 36hr hx of slurred speech New onset of acute ischemic stroke A- CT shows multiple lacunar small infarcts in L corpus striatum and an arrachnoid cyst. MRI confirms it is acute stroke. CTA shows R ICA stenosis of 60 -70%. A1C and TSH wnl. P-continue ASA daily -neuro consulted, f/u on recs -continue clopidogrel per CV surg recs - continue pt/ot/speech therapy -Case management consulted for possible rehab placement. R ICA stenosis A- CTA shows R ICA stenosis of 60-70%. CV surge recommends clopidogrel and aspirin with outpt f/u P- will follow CV surg recs as above HFrEF A- Echo shows EF of 35-40%. No hx of HF. Pt asymptomatic. Cards consulted, appreciate recs P- continue losartan and coreg -will plan for outpt repeat echo in 2-3 months per card recs HTN A- Pt had SBPs ranging 130-160 in ED. [id number] today P- continue losartan and coreg per plan above. Premature Ventricular Contractions A- EKG at presentation showed NSR with PVCs. Pt had bout of yesterday for 20min with HR in 150's. Cards is consulted, appreciate recs. trops negative yesterday. P- will monitor rhythm as well as monitor pts symptoms Code: DNR/DNI Addendum - Attending - Attending Attestation Date/Time: 03/30/18 4211 I personally evaluated the patient and discussed the management with Dr. Coelho and Dr. Clifton I agree with the History, Examination, Assessment and Plan documented above with any addition or exceptions noted below. 82 yo male with hx of PVD admitted for CVA. HD#3 Patient still with slurred speech. Reports he feels well. No side effects from medication. Ready to go home. VS reviewed. Labs reviewed. Imaging reviewed. 1. Ischemic CVA: s/p CT/MRI. Noted to have Left corpus striatum lacunar infarcts. Continues to have slurred speech. Requires modified diet. Stroke team following. Will need assistance at home along with home PT/OT/Speech. CM following. Does not wish to pursue inpatient rehab. Needs PCP. On statin, ASA, and Plavix. 2. Right Asymptomatic Carotid stenosis: Ultrasound right ICA/CCA ratio > 2. CT surg consulted. CTA with 75% stenosis to right carotid. Per CT surg will continue medical management at this time with DAPT. Repeat scans in 3 months. 3. New onset rEFHF: Cards consulted. Risk for CAD. Started on low dose beta eloise and ARB. Continue tele monitoring. Possibly will need event monitor placed at d/c. Noted to have dysrrhymias on tele but asymptomatic per patient. Stress test today. 4. hx of PVD s/p right iliac stent placement: Continue plavix 5. HLD: Restarted low dose statin. No side effects noted. 6. HTN: On beta eloise and ARB 7. Arachnoid cyst: Located in Left Middle Cranial Fossa. No complications from cyst. Will need follow up outpatient to monitor growth or mass effect. Currently 3.5 x 3.5 x 3.0 cm. Dispo: Cards consulted. Will follow up on recs. CM working on home health and therapy for d/c planning. Patient to find PCP. Must have appt prior to d/c. [place]
[2018-03-29] MEDS ORDERED: ADENOSINE 60 MG/20 ML VIAL ONE (09:00)
--- NOTE | 2018-03-29 09:32 | PDOC.CTH ---
Cardiology Progress Note - Subjective The pt seen and examined. No overnight events. No cardiac complaints. Plan for stress test for hx of HR up to 140-150s for > 20mins yesterday. - Objective Vital Signs Temp Pulse Resp BP Pulse Ox 03/29/18 08:00 97.7 F 64 16 144/88 H 98 03/29/18 03:25 97.5 F L 62 18 144/84 H 95 03/29/18 00:11 97.9 F 57 L 16 137/78 97 Weight 153 lb 7 oz 03/28/18 03/29/18 03/30/18 06:59 06:59 06:59 Intake Total 600 275 Output Total 200 Balance 400 275 - Physical Examination General/Neuro: alert & oriented x3 Neck: no JVD present Lungs: CTA Heart: RRR Abdomen: soft Extremities: other: (No edema) - Telemetry Telemetry Rhythm: SR - Labs Result Diagrams: 03/27/18 05:54 03/27/18 05:54 Troponin/CKMB Troponin I Less than 0.010 ng/mL (< 0.028) 03/28/18 22:35 - Assessment/Plan 1. S/p > 20mins of NSVT with HR 140-150s on 03/28/18 - No more episodes since yesterday; On Coreg 6.25mg BID; Stress test today. 2. New onset of Systolic HF - stable with BBlocker and ARB; Will start diuretic if needed. 3. Ischemic CVA - stable; managed by neurology/PCP 4. HTN - stable MAR reviewed <Addendum> * The pt's stress test was reviewed. Small ischemia to apex. Cont. medical tx only at this time. * S/p 3.1 sec pauses this AM; The pt refused to have PM placement after Dr Dominguez discussed with the pt about the risk of having > 3 sec pauses and the benefit of PM. Will decrease Coreg from 6.25mg to 3.125mg BID. Pt. seen and evaluated by me. I agree with the A/P by the REFRIGERATOR CABINETMAKER. We have discussed the plan. I spoke with the pt. and discussed the results of the stress test and we discussed possible pacemaker for the bradycardia and the pause. He refused the pacemaker. I suggest we decrease the betablocker . He can be d/c'd to home. Review of Systems - Review of Systems Constitutional: reports: no symptoms reported EENTM: reports: no symptoms reported Respiratory: reports: no symptoms reported Cardiac (ROS): reports: no symptoms reported ABD/GI: reports: no symptoms reported : reports: no symptoms reported Musculoskeletal: reports: no symptoms reported
[2018-03-29] MEDS: Carvedilol 6.25 MG TAB PO SCH ×2 (13:05→17:45)
[2018-03-29] MEDS: Aspirin 81 mg Enteric Coated Tablet PO SCH (13:06)
[2018-03-29] MEDS: Losartan 25 MG TAB PO SCH (13:06)
[2018-03-29] MEDS: Clopidogrel Bisulfate 75 MG TAB PO SCH (13:06)
--- NOTE | 2018-03-29 14:12 | NM ---
NUCLEAR MEDICINE MYOCARDIAL PERFUSION STUDY: DATE: 03/29/18 HISTORY: CVA. TECHNIQUE: SPECT imaging of the left ventricular myocardium is obtained during rest and stress following the int ravenous administration of 10.5 and 32.0 mCi technetium-99m labeled sestamibi, respectively. FINDINGS: TID is 1.18. There is a questionable very small reversible defect at the level of the cardiac apex. O therwise, no reversible defect is seen. There is mild global hypokinesis, most prominent in the regio n of the inferior wall. EDV is 102 mL. ESV is 56 mL. Calculated left ventricular ejection fraction is 45%. IMPRESSION: 1. Questionable very small reversible defect of the cardiac apex. 2. Left ventricular mild global hypokinesis with LVEF of 45%. POS: MARISEL
--- NOTE | 2018-03-29 17:55 | EKG ---
Test Reason : Blood Pressure : / mmHG Vent. Rate : 070 BPM Atrial Rate : 070 BPM P-R Int : 140 ms QRS Dur : 138 ms QT Int : 458 ms P-R-T Axes : 072 -71 034 degrees QTc Int : 494 ms Sinus rhythm with marked sinus arrhythmia with frequent Premature ventricular complexes Right bundle branch block Left anterior fascicular block Bifascicular block Abnormal ECG When compared with ECG of 26-MAR-2018 10:45, No significant change was found Confirmed by NUBIA SEVILLA ([id number]) on 03/29/2018 5:55:45 PM Referred By: LINCOLN Confirmed By:NUBIA SEVILLA
[2018-03-29] MEDS: Enoxaparin Sodium 40 MG/0.4 ML SYRINGE SC SCH (20:32)
[2018-03-29] MEDS: Atorvastatin Calcium 20 MG TAB PO SCH (20:41)
[2018-03-30] MEDS ORDERED: Carvedilol 3.125 MG TAB PO SCH ×2 (08:00→17:00)
--- NOTE | 2018-03-30 08:03 | PDOC.FM ---
- Subjective Subjective: Pt feels well this morning with no new complaints or concerns. Pt has friend coming at 10:30am to visit and possibly take him home. no fever/chills, no syncope no seizure - Objective MAR Reviewed: Yes Vital Signs & Weight: Vital Signs (12 hours) Temp Pulse Resp BP Pulse Ox 03/30/18 03:49 97.8 F 55 L 18 130/80 97 03/30/18 00:46 98.6 F 57 L 16 95 Weight Weight 69.598 kg I&O: 03/29/18 03/30/18 03/31/18 06:59 06:59 06:59 Intake Total 275 240 Balance 275 240 Result Diagrams: 03/27/18 05:54 03/27/18 05:54 Phys Exam - Physical Examination Constitutional: NAD HEENT: moist MMs, sclera anicteric Neck: no JVD, supple Respiratory: no wheezing, no rales Cardiovascular: RRR, no significant murmur Gastrointestinal: soft, non-tender Musculoskeletal: no edema, pulses present Neurological: non-focal, normal sensation Psychiatric: normal affect, A&O x 3 Skin: no rash, normal turgor Dx/Plan (1) Ischemic stroke Code(s): I63.9 - CEREBRAL INFARCTION, UNSPECIFIED Status: Acute (2) HFrEF (heart failure with reduced ejection fraction) Code(s): I50.20 - UNSPECIFIED SYSTOLIC (CONGESTIVE) HEART FAILURE Status: Acute (3) Carotid stenosis Code(s): I65.29 - OCCLUSION AND STENOSIS OF UNSPECIFIED CAROTID ARTERY Status : Acute (4) HTN (hypertension) Code(s): I10 - ESSENTIAL (PRIMARY) HYPERTENSION Status: Acute - Plan Plan: 82yo M presenting with 36hr hx of slurred speech New onset of acute ischemic stroke A- CT shows multiple lacunar small infarcts in L corpus striatum and an arrachnoid cyst. MRI confirms it is acute stroke. CTA shows R ICA stenosis of 60 -70%. A1C and TSH wnl. P-continue ASA daily -neuro consulted, will f/u outpatient -continue clopidogrel per CV surg recs - continue pt/ot/speech therapy -Pt making arrangements this AM with friend for outpatient f/u and has plans for DC today with outpt rehab untill home health can be set up. R ICA stenosis A- CTA shows R ICA stenosis of 60-70%. CV surge recommends clopidogrel and aspirin with outpt f/u P- will follow CV surg recs as above HFrEF A- Echo shows EF of 35-40%. No hx of HF. Pt asymptomatic. Cards consulted, appreciate recs P- continue losartan and coreg -will plan for outpt repeat echo in 2-3 months per card recs HTN A- Pt had SBPs ranging 130-160 in ED. [id number] today P- continue losartan and coreg per plan above. Premature Ventricular Contractions A- EKG at presentation showed NSR with PVCs. Pt had bout of yesterday for 20min with HR in 150's. Cards is consulted, appreciate recs. trops negative yesterday. P- will monitor rhythm as well as monitor pts symptoms Code: DNR/DNI
[2018-03-30] MEDS: Aspirin 81 mg Enteric Coated Tablet PO SCH (08:10)
[2018-03-30] MEDS: Losartan 25 MG TAB PO SCH (08:10)
[2018-03-30] MEDS: Clopidogrel Bisulfate 75 MG TAB PO SCH (08:10)
[2018-03-30 08:22] VITALS: BP 158/82; TEMP 98.8
--- NOTE | 2018-03-31 11:14 | DIS ---
DATE OF ADMISSION: 03/26/2018 DATE OF DISCHARGE: 03/30/2018 RESIDENT: Chuy Coelho MD ADMITTING ATTENDING: Victor Manuel Blount MD. DISCHARGE ATTENDING: Chelsi Yousif MD CONSULTS: Neurology, Cardiovascular Surgery, and Cardiology. PROCEDURES: 1. On 03/26/2018, brain CT, impression, multiple small moderately low attenuation lesions involving the left corpus striatum consistent with multiple small lacunar infarctions of indeterminate age. No acute intracranial hemorrhage or mass effect. Arachnoid cyst in the left middle cranial fossa. If there are no contraindications, MRI of the brain would be useful to distinguish acute versus subacute infarctions from the old ones. 2. On 03/26/2018, chest x-ray, impression, no evidence of acute cardiopulmonary process. 3. On 03/26/2018, brain MRI, impression, acute infarction of the left corpus striatum involving lenticulostriate branch territory of the left middle cerebral artery, right mastoid effusion, arachnoid cyst in the left middle cranial fossa. 4. On 03/26/2018, carotid Doppler study, impression, atherosclerosis of bilateral proximal internal carotid arteries, [id number] stenosis in the right internal carotid artery. 5. On 03/27/2018, CT angiography, impression, compared to the noncontrast brain CT on 03/26/2018, the region of low attenuation representing cytotoxic edema involving the left corpus striatum has become more confluent. There is no evidence of hemorrhage. Again noted is the arachnoid cyst in the left middle cranial fossa. No mass effect. Evolution of acute infarction of the left corpus striatum, severe. Approximately, 75% stenosis of the right internal carotid artery, approximately 1.5 cm distal to its origin. Atherosclerotic disease in the bilateral proximal internal carotid arteries. Thin vertical string-like material within the lumen of the trachea, presumably representing a long piece of secretion. 6. On 03/29/2018, stress test nuclear medicine, impression, questionable very small reversible defect of the cardiac apex. Left ventricular mild global hypokinesia with left ventricular ejection fraction of 45%. 7. On 03/27/2018, echocardiogram, impression, technically difficult examination. Overall, left ventricular function is moderately depressed. Ejection fraction is visually estimated at 35% to 40%. E/A flow reversal is noted, suggestive of diastolic dysfunction. Mild mitral regurgitation is present. Mild tricuspid regurgitation. PRIMARY DIAGNOSES: 1. Acute ischemic infarction. 2. Stroke. 3. New diagnosis of congestive heart failure with reduced ejection fraction. 4. New diagnosis of right internal carotid artery stenosis. SECONDARY DIAGNOSIS: Hypertension. DISCHARGE MEDICATIONS: 1. Clopidogrel 75 mg p.o. daily. 2. Aspirin 81 mg p.o. daily. 3. Atorvastatin 20 mg p.o. at bedtime. 4. Losartan 25 mg p.o. daily. 5. Carvedilol p.o. b.i.d. Discontinued medications: None. HISTORY OF PRESENT ILLNESS AND HOSPITAL COURSE: This is an 82-year-old male with past medical history of coronary artery disease, whom I had the distinct pleasure of caring for during his hospital stay. Mr. Bocanegra presented to the hospital with stroke-like symptoms and was found via CT and MRI report as listed above to have acute ischemic infarction. The patient was placed on aspirin and atorvastatin, though dosage was slowly increased only up to 20 mg because the patient had reported some history of intolerance towards atorvastatin. During his workup of stroke, it was also found that the patient had right carotid artery stenosis and so Cardiovascular Surgery was consulted. They recommended that the patient continue his aspirin as well as his home clopidogrel dose and that they follow up outpatient with him in 3 to 4 months. Otherwise, an incidental finding was found that the patient had an arachnoid cyst on MRI. It was also found during stroke workup that the patient had a reduced ejection fraction and so was diagnosed with heart failure with reduced ejection fraction as the report reads above. Cardiology was consulted and recommended a low dose of Coreg and losartan to be continued on the patient as it had already been started in the hospital. These medications were all tolerated well. Otherwise, the patient's hospital stay was significant for Physical Therapy, Occupational Therapy, and Speech Therapy, which recommended a mechanical soft diet and continued therapies of all three variety. Case Management was consulted as the patient did not have a primary care physician and orders were written for outpatient rehab, though the patient desired to have home health. Plans were made for the patient to follow up with Dr. Wei in [place], [place], so he could have continued followup for his stroke, heart failure, and carotid artery stenosis as well as seek orders for home health with Physical Therapy, Occupational Therapy, and Speech Therapy, and so when all arrangements were made and the patient had a ride safely home back to [place], the patient was discharged. DISPOSITION: Stable. DISCHARGE INSTRUCTIONS: 1. Location: Home. 2. Diet: Mechanical soft. 3. Activity: As tolerated with restrictions on driving and/or operating heavy machinery, etc. 4. Followup: Occupational Therapy, Physical Therapy, and Speech Therapy with Dr. Alexi Richard in 3 to 4 months; Dr. Marvin More in 3 to 4 weeks; Dr. Kelly Dominguez in 3 to 4 weeks; with Dr. Wei in [place], [place], in 7 days. Job ID: [id number]
== END 2018-03-30 11:19 | disposition home or self-care (01) | DRG 65 ==
LOC: ERS 10:20 → ERHOLD 12:08 → 2SE 19:32
PROVIDERS: ADMIT Family Medicine; ATTEND Family Medicine
DX: I63.9 Cerebral infarction, unspecified (principal); I45.2 Bifascicular block; G81.91 Hemiplegia, unspecified affecting right dominant side; I50.20 Unspecified systolic (congestive) heart failure; Z79.82 Long term (current) use of aspirin; I11.0 Hypertensive heart disease with heart failure; I65.21 Occlusion and stenosis of right carotid artery; I25.10 Atherosclerotic heart disease of native coronary artery without angina pectoris; R47.81 Slurred speech; Z66 Do not resuscitate; I73.9 Peripheral vascular disease, unspecified; F17.210 Nicotine dependence, cigarettes, uncomplicated; R29.810 Facial weakness; Z79.02 Long term (current) use of antithrombotics/antiplatelets; E78.5 Hyperlipidemia, unspecified; G93.0 Cerebral cysts
CPT/HCPCS: 36415; 36416; 70450; 70496; 70498; 70551; 71045; 78452; 80048; 80053; 80061; 82550; 83036; 83735; 84443; 84484; 85025; 85610; 85730; 93005; 93010; 93017; 93306; 93880; 96360; 96361; A9500; G8978-GP-CK; G8979-GP-CJ; G8987-GO-CJ; G8988-GO-CI; G8996-GN-CJ; G8996-GN-CK; G8997-GN-CH; G8997-GN-CJ; J0153; J1650